=== PATIENT | female | born 1985 | race Caucasian/White ===

== ENCOUNTER 2022-10-13 06:55 | Inpatient (IN) ==
--- NOTE | 2022-10-06 09:35 | Anesthesiology Consultation ---
Date of Service October 06, 2022 Assessment & Plan (1) Encounter for pre-operative examination: Chart Review Chart Review: temporary data entry clerk initiated -COVID screening: Per PAT nursing assessment on 10/06/22. No known COVID-19 pos itive contacts or current COVID-19 related symptoms. Travel screen negative. At surgeon discretion if preop Covid testing being done. History Surgery Operation Date: 10/13/22 08:50 Proposed Procedures p Section (Delivery of Baby Through Abdominal Incision) - Gissel Engle MD, FACOG Height/Weight Height: 5 ft 6 in Weight: 80.286 kg Allergies Allergy/AdvReac Type Severity Reaction Status Date / Time No Known Allergies Allergy Verified 10/06/22 08:04 Medications Home Medications Medication Instructions Recorded Confirmed Last Taken prenat.vits,noemi,[id number] 1 tab PO DAILY 04/24/22 10/06/22 Unknown Past Medical History Medical History Anxiety no longer on meds > controlled Asthma hx of > no res inh, was sports related Past Family History Family History Grandfather (Maternal) Congestive heart failure Grandmother (Maternal) Alzheimer disease Grandfather (Paternal) Diabetes Other Coronary heart disease Past Surgical History Surgical History S/P wisdom tooth extraction Social History Smoking Status: Former smoker Smoking cigarettes per day: no longer cigarettes, but vapes on occasion> advised npo status Do You Dip or Chew Tobacco: No Hx Alcohol Use: No Hx Substance Use: No substance use type: does not use
--- NOTE | 2022-10-12 11:21 | History & Physical Report ---
Date of Service October 12, 2022 Assessment & Plan (1) 39 weeks gestation of : (2) Breech presentation: (3) Skin tag of labia: Plan On day of admission will plan c/s. Declines ecv. Has skin tag of vulva she would also like to excise. C/s reviewed, risks, benefits and complications. Consent reviewed and signed. Denies other concerns. Aware of preop instructions. History of Present Illness Chief Complaint: planned c/s Primary Care Provider: MARK PCP 37yo at 39wks ega on day of her admission for planned c/s due to breech presentation. Today baby is still breech. Pt declines attempt at ecv. She denies rom, vb. or ctx. +FM. PNC c/b 1. breech 2. skin tag of vulva, wants to have removed at time of delivery. 3. ASCUS-H, needs pp colpo at 6wks. PNL rh pos, ri, gbs neg OBH: g1 GYNH: abnl paps, needs pp followup as colpo at 6wks, due to suspected margarita 2 on colpo Allergies Allergy/AdvReac Type Severity Reaction Status Date / Time No Known Allergies Allergy Verified 10/12/22 09:10 Home Medications Medication Instructions Recorded Confirmed Type prenat.vits,noemi,[id number] 1 tab PO DAILY 04/24/22 10/12/22 History Patient History Medical History Anxiety no longer on meds > controlled Asthma hx of > no res inh, was sports related Surgical History S/P wisdom tooth extraction Family History Grandfather (Maternal) Congestive heart failure Grandmother (Maternal) Alzheimer disease Grandfather (Paternal) Diabetes Other Coronary heart disease Social History (Updated 04/24/22 @ 09:59 by Chaya Wilson) Smoking Status: Former smoker Tobacco Type: E-cigarettes / Vaping Cigarettes Per Day: no longer cigarettes, but vapes on occasion> advised npo status; Second Hand Exposure: No; Do You Dip or Chew Tobacco: No; Hx Alcohol Use: No Hx Substance Use: No Preferred Language: Malay Communication Ability: Effective Senior Benefits Specialist Required: No Beliefs That Will Affect Care: None marital status: Legally marital status details: Nils (34) [phone] Current Living Situation: Family and Significant Other Current Living Situation Comment: lives with FOB, fob's children stay every other night. current occupational status: employed current occupation: [employer] @ [employer] Feels Safe at Home: Yes Assistive Devices: Glasses Review of Systems as per Subjective / HPI Physical Exam Constitutional: WD/WN, vitals as above Respiratory: normal respiratory effort, lungs clear to auscultation Cardiovascular: Rate/Rhythm: regular rate and regular rhythm Gastrointestinal (Abdomen): soft gravid nt nst reactive Musculoskeletal: no edema Neurologic: grossly normal Psychiatric: A+Ox3, euthymic affect Coding Level of Care Code None Diagnoses 39 weeks gestation of Z3A.39 Breech presentation O32.1XX0 Skin tag of labia N90.89
[~2022-10-13 06:55] MED LIST: CITRIC ACID/SODIUM CITRATE 15 ML UDC PO SCH; LACTATED RINGER'S 1,000 ML IV SCH; ceFAZolin 2,000 MG in SYRINGE 0 ML IV SCH
--- NOTE | 2022-10-13 07:32 | History & Physical Bridge Note ---
Date of Service October 13, 2022 History & Physical Bridge Note I have examined the patient, reviewed the History & Physical and in the interval since the performance of the History & Physical I have noted the following changes of clinical significance: no changes noted
[2022-10-13] MEDS ORDERED: ONDANSETRON INJ 2 MG/ML 2 ML VIAL ONE (08:09)
[2022-10-13] MEDS ORDERED: fentaNYL citrate PF 100 MCG/2 ML VIAL ONE (08:09)
[2022-10-13] MEDS ORDERED: OXYTOCIN 10 UNITS/ML VIAL ONE (08:09)
[2022-10-13] MEDS ORDERED: PHENYLEPHRINE 100MCG/ML 5ML SYR ONE (08:09)
[2022-10-13] MEDS ORDERED: MoRPHine SULFATE PF 1 MG/ML 10 ML AMP/VIAL ONE (08:09)
[2022-10-13 08:52] LABS: Basophils # (auto) 0.03 K/uL (0.00-0.20); Basophils % (auto) 0.3 %; Eosinophils # (auto) 0.07 K/uL (0.00-0.50); Eosinophils % (auto) 0.6 %; Hematocrit (blood only) 35.2 % (37.0-47.0); Hemoglobin 12.3 g/dl (12.0-16.0); Immature Granulocytes # (auto) 0.06 K/uL (0.01-0.20); Immature Granulocytes % (auto) 0.5 %; Lymphocytes # (auto) 1.99 K/uL (1.20-3.40); Lymphocytes % (auto) 18.1 %; Mean Corpuscular Hemoglobin 31.4 pg (25.0-34.0); Mean Corpuscular Hgb Conc 34.9 g/dL (32.0-36.0); Mean Corpuscular Volume 89.8 fL (80.0-100.0); Mean Platelet Volume 10.2 fL (9.4-12.4); Monocytes # (auto) 0.99 K/uL (0.11-0.59); Neutrophils # (auto) 7.86 K/uL (1.40-6.50); Neutrophils % (auto) 71.5 %; Platelet Count 225 K/uL (130-400); RDW Coefficient of Variation 12.7 % (11.5-14.5); RDW Standard Deviation 41.3 fL (36.4-46.3); Red Blood Count 3.92 M/uL (4.20-5.40)
[2022-10-13] MEDS ORDERED: SILVER NITR/POTASSIUM NITRATE APPLICATOR ONE (10:00)
[2022-10-13] MEDS ORDERED: NALOXONE HCL 0.08 MG in SYRINGE 1.8 ML IV PRN (10:07)
[2022-10-13] MEDS ORDERED: MoRPHine SULFATE PF 1 MG/ML 10 ML AMP/VIAL INT SPINAL ONE (10:07)
[2022-10-13] MEDS ORDERED: HYDROmorphone INJ 0.5 MG/0.5 ML SYR IV PRN (10:07)
[2022-10-13] MEDS ORDERED: LACTATED RINGER'S 500 ML IV PRN (10:07)
[2022-10-13] MEDS ORDERED: ePHEDrine sulfate 50 MG/ML AMP IV PRN (10:07)
[2022-10-13] MEDS ORDERED: NALBUPHINE HCL INJ 10 MG/ML AMP IV PRN (10:07)
[2022-10-13] MEDS ORDERED: NALOXONE HCL 0.4 MG/1 ML VIAL/CARP IV PRN (10:07)
[2022-10-13] MEDS ORDERED: NALOXONE HCL 1 MG in SODIUM CHLORIDE 0.9% 1000ML 1,000 ML IV PRN (10:07)
[2022-10-13] MEDS ORDERED: diphenhydrAMINE 50 MG/ML VIAL IV PRN (10:07)
[2022-10-13] MEDS ORDERED: ONDANSETRON INJ 2 MG/ML 2 ML VIAL IV PRN ×2 (10:07→12:15)
[2022-10-13] MEDS ORDERED: PROMETHAZINE HCL 6.25 MG in SODIUM CHLORIDE 0.9% 50 ML IV PRN (10:07)
[2022-10-13] MEDS ORDERED: SODIUM CHLORIDE 0.9% 1000ML 1,000 ML IV SCH (10:15)
[2022-10-13] MEDS ORDERED: NO NARCOTICS OR SEDATIVES SCH (10:15)
[2022-10-13] MEDS ORDERED: DC INTRASPINAL MORPHINE SCH (10:15)
[2022-10-13] MEDS ORDERED: MIDAZOLAM HCL 1 MG/ML 2ML VIAL ONE (10:19)
--- NOTE | 2022-10-13 10:45 | Operative Report ---
PG Post Operative Report Pre & Post Diagnosis Operation Date: 10/13/22 08:50 Pre-Op Diagnosis: 1. Term 2. Breech presentation 3. Removal of skin tag Post-Op Diagnosis: Same I identified the patient and participated in the time-out.: Yes Procedure Operation Date: 10/13/22 08:50 Actual Procedures p Primary Low Transverse Section (Delivery of Baby Through Abdominal Incision), Removal of Skin Tag of right vulva with the of a live male child at 1008. - Gissel Engle MD, FACOG Surgeon Gissel Engle MD, FACOG Guard Rail Installer [place] Estimated Blood Loss 450 Findings Consistent with Post-Op Diagnosis (viable male , apgars pending. normal uterus, tubes and ovaries bilaterally. .8x.4cm right vulvar skin tag. ) Fluids 1000 Specimens cord blood skin tag of vulva Drains galvin Anesthesia Type Spinal Complications none Disposition Accompanied Patient To Recovery: No Disposition: L&D Indications 37yo at 39wks ega with breech presentation for planned c/s. Declines ECV. Description of Procedure The patient was taken to the operating room and identified. After adequate anesthesia was obtained, she was placed in the supine position with a leftward tilt on the operating table and prepped and draped in the usual sterile fashion. A galvin catheter had already been placed. The knife was used to create a Pfannensteil skin incision that was carried down to the underlying layer of fascia. The fascia was nicked in the midline and this opening was extended laterally using Gould scissors. Skip clamps were placed on the superior and inferior aspect of the fascial incision tenting it upward and the underlying rectus muscles were dissected off the overlying fascia both sharply and bluntly using Gould scissors. The rectus muscles were bluntly in the midline. The peritoneal cavity was bluntly entered into. This opening was stretched. The bladder blade was placed. The vesicouterine peritoneum was elevated and opened up into and the bladder flap was created digitally and bladder blade was replaced. The knife was used to create a hysterotomy and this opening was stretched. The operators hand was placed through the hysterotomy and the buttocks was elevated and with fundal pressure the buttocks was delivered to level of scapulae and the arms were swept across the anterior midline. The head was flexed and delivered. The cord was clamped and cut and the infant's mouth and nares were bulb suction. The infant was handed off to the awaiting pediatricians. Cord blood was obtained. The placenta was manually expressed. The uterus was exteriorized and cleared of all clots and debris. Dilute IV Pitocin was begun. The uterine tone was improving. The hysterotomy was closed in a running interlocking fashion using 0 Vicryl followed by a second imbricating layer of 0 Vicryl. The hysterotomy was not hemostatic at an area near the right corner and therefore an additional figure of eight suture of 2-0 vicryl was placed for excellent hemostasis. The pelvis was irrigated. The uterus was returned to the abdomen. The gutters were cleared of all clots and debris. The hysterotomy was reinspected and noted to be hemostatic. The fascia was then closed in running fashion using 0 Vicryl. The subcutaneous fat was copiously irrigated and reapproximated using 2-0 chromic. The skin was closed in a subcuticular fashion using 4-0 monocryl. Attention was then turned to patient vulva, skin tag cleansed with betadine x 2, elevated and transected at stalk. Sent to pathology. Base cauterized with silver nitrate for excellent hemostasis. At this point the procedure was terminated. The patient was transferred to the recovery room in stable condition. All sponge, lap and needle counts are correct x2. I attest to the content of the Intraoperative Record and any orders documented therein. Any exceptions are noted below. OB Procedure Charges 98986 CHARGE HAND Minor Procedure Codes Exc malig vulvar lesion 35826 Removal of Skin Lesion 0.3-1.0 cm
--- NOTE | 2022-10-13 10:54 | Anesthesiology Progress Note ---
Date of Service October 13, 2022 Anesthesia Post Procedure Vital Signs Vital Signs: Temp Pulse Resp BP Pulse Ox O2 Del Method 10/13/22 07:13 36.8 C 18 Room Air 10/13/22 10:51 72 99 10/13/22 10:46 72 119/61 100 10/13/22 07:01 81 111/73 Transfer of Care Handoff Completed per policy Notes Mental Status: alert / awake / arousable and participated in evaluation Patient Amnestic to Procedure: No Nausea / Vomiting: adequately controlled Pain: adequately controlled Airway Patency, RR, SpO2: stable & adequate BP & HR: stable & adequate Hydration State: stable & adequate Neuraxial Anesthesia: was administered and sensory block is resolving Anesthetic Complications: no major complications apparent and Pt Satisfied with anesthetic care
[2022-10-13] MEDS ORDERED: SILVER NITR/POTASSIUM NITRATE APPLICATOR EXT ONE (11:10)
[2022-10-13] MEDS ORDERED: DIPHTHERIA/TETANUS/PERTUSSIS Vaccine (Tdap, Age 7+yrs) 0.5mL SYR/VL IM ONE (12:15)
[2022-10-13] MEDS ORDERED: HYDROCORTISONE ACETATE 25 MG SUPP PR PRN (12:15)
[2022-10-13] MEDS ORDERED: MAGNESIUM HYDROXIDE SUSP 30 ML UDC PO PRN (12:15)
[2022-10-13] MEDS ORDERED: SENNA 8.6 MG TAB PO PRN (12:15)
[2022-10-13] MEDS ORDERED: BENZOCAINE 20% SPRY 85 APPLN/85 GM CAN EXT PRN (12:15)
[2022-10-13] MEDS: KETOROLAC 30 MG/ML VIAL IV PRN (12:26)
[2022-10-13] MEDS: OXYTOCIN 20 UNITS in LACTATED RINGER'S 1,000 ML IV SCH ×2 (13:21→22:13)
[2022-10-13] MEDS: SIMETHICONE 80 MG CHEW PO SCH ×3 (17:12→20:33)
[2022-10-13] MEDS: DOCUSATE SODIUM 100 MG CAP PO SCH (20:33)
[2022-10-13] MEDS: LACTATED RINGER'S 1,000 ML IV SCH (20:34)
[2022-10-14] MEDS: KETOROLAC 30 MG/ML VIAL IV PRN (04:03)
[2022-10-14] MEDS ORDERED: diphenhydrAMINE Capsule 25 MG CAP PO PRN (04:08)
[2022-10-14] MEDS ORDERED: PROMETHAZINE HCL 25 MG in SODIUM CHLORIDE 0.9% 50 ML IV PRN (04:08)
[2022-10-14] MEDS ORDERED: KETOROLAC 30 MG/ML VIAL IV PRN (04:08)
[2022-10-14] MEDS ORDERED: diphenhydrAMINE 50 MG/ML VIAL IV PRN (04:08)
[2022-10-14] MEDS ORDERED: MEPERIDINE HCL 50 MG/ML CARP IV PRN (04:08)
[2022-10-14] MEDS: LACTATED RINGER'S 1,000 ML IV SCH ×2 (04:35→19:49)
--- NOTE | 2022-10-14 06:49 | Obstetrical Progress Note ---
Date of Service October 14, 2022 Assessment & Plan (1) S/P : Plan: encourage ambulation pain control Admission and Anticipated Discharge Date Admission Date: October 13, 2022 Supervising Physician Co-Signing Physician Notes Resident Physician Supervision Note: I was present with Dr. Nayak during the history and exam. I discussed the case with the resident and agree with the findings and plan as documented in the note. Any exceptions or clarifications are listed here: [None] Documented By: Shantanu Calero MD, FACOG Subjective 37 yo post day 1 s/p Ambulation: ambulating normally Voiding: no voiding problems Passing Gas:: Yes Diet Tolerance:: regular diet Lochia:: Small Feeding Type:: breast feeding Current Pain Level: minimal Resting comfortably this AM. Denies COOK, CP, SOB, N/V/D, LE swelling Review of Systems Review of Systems: reviewed, per hpi Physical Exam Physical Exam: General: patient resting comfortably, NAD, non-toxic in appearance, AA&O x 4, answers questions appropriately. Skin: warm, dry, intact HEENT: NC/AT, anicteric sclera, conjunctiva without injection, moist mucus membranes. Heart: +S1/S2, regular, no m/r/g Lungs: equal air entry bilaterally, no rales/rhonchi/wheezes Abd: +BS, soft, NT/ND, uterine fundus firm at umbilicus, caesarean incision C/D/I Ext: warm, no clubbing/cyanosis or edema, Rusty's neg Neuro: nonfocal, patient AA&O x 4, speech intact, no facial droop, moving all extremities on command. Results & Data Vital Signs (Past 12 Hours) Vital Signs Temp Pulse Resp BP Pulse Ox O2 Del Method 10/14/22 03:00 16 96 10/14/22 02:00 16 96 10/14/22 04:00 37.2 C 67 16 95/57 L 95 Room Air 10/14/22 01:00 18 97 10/14/22 00:00 16 97 10/13/22 23:20 16 95 10/13/22 23:20 36.9 C 73 16 95/54 L 95 Room Air 10/13/22 22:00 18 99 10/13/22 20:30 18 100 10/13/22 20:30 36.9 C 76 18 114/64 100 Room Air Resident Activity Tracking Resident Involvement: Resident Care Provided Care Provided: Adult Hospital Medicine
[2022-10-14] MEDS ORDERED: NON-FORMULARY MEDICATION (Prenat.Vits,Cal,Min-Iron-Folic tablet) PO SCH (09:00)
[2022-10-14] MEDS: DOCUSATE SODIUM 100 MG CAP PO SCH ×2 (09:24→21:44)
[2022-10-14] MEDS: FERROUS SULFATE 325 MG TAB PO SCH (09:24)
[2022-10-14] MEDS: SIMETHICONE 80 MG CHEW PO SCH ×4 (09:24→21:44)
[2022-10-14] MEDS: PRENATAL VITAMIN 1 TAB PO SCH (09:24)
[2022-10-14] MEDS: IBUPROFEN 600 MG TAB PO PRN ×4 (09:25→22:13)
[2022-10-14] MEDS: oxyCODONE/ACETAMINOPHEN 5mg/325mg TAB PO PRN ×4 (09:25→22:13)
[2022-10-14 09:26] LABS: Basophils # (auto) 0.04 K/uL (0.00-0.20); Basophils % (auto) 0.3 %; Eosinophils # (auto) 0.03 K/uL (0.00-0.50); Eosinophils % (auto) 0.2 %; Hematocrit (blood only) 35.6 % (37.0-47.0); Hemoglobin 12.3 g/dl (12.0-16.0); Immature Granulocytes # (auto) 0.07 K/uL (0.01-0.20); Immature Granulocytes % (auto) 0.5 %; Lymphocytes # (auto) 1.83 K/uL (1.20-3.40); Lymphocytes % (auto) 11.9 %; Mean Corpuscular Hemoglobin 31.6 pg (25.0-34.0); Mean Corpuscular Hgb Conc 34.6 g/dL (32.0-36.0); Mean Corpuscular Volume 91.5 fL (80.0-100.0); Mean Platelet Volume 9.6 fL (9.4-12.4); Monocytes # (auto) 0.93 K/uL (0.11-0.59); Monocytes % (auto) 6.1 %; Neutrophils # (auto) 12.43 K/uL (1.40-6.50); Platelet Count 203 K/uL (130-400); RDW Coefficient of Variation 12.6 % (11.5-14.5); RDW Standard Deviation 41.3 fL (36.4-46.3); Red Blood Count 3.89 M/uL (4.20-5.40); White Blood Count 15.33 K/ul (4.8-10.8)
[2022-10-14] MEDS ORDERED: MEASLES, MUMPS & RUBELLA VIRUS VIAL ONE (17:23)
[2022-10-14] MEDS ORDERED: bisacodyL 5 MG TABEC PO SCH (20:00)
[2022-10-15] MEDS: IBUPROFEN 600 MG TAB PO PRN ×5 (03:35→23:53)
[2022-10-15] MEDS: oxyCODONE/ACETAMINOPHEN 5mg/325mg TAB PO PRN ×5 (03:36→23:55)
[2022-10-15 06:46] LABS: Hematocrit (blood only) 30.1 % (37.0-47.0); Hemoglobin 10.3 g/dl (12.0-16.0)
--- NOTE | 2022-10-15 08:05 | Obstetrical Progress Note ---
Date of Service October 15, 2022 Assessment & Plan (1) examination following delivery: Plan stable, routine care. breast, rhpos, ri. pain control adequate with available pain meds. hgb noted. Day #:: 2 Subjective Ambulation: ambulating normally Voiding: no voiding problems Passing Gas:: Yes Diet Tolerance:: regular diet Lochia:: Small Feeding Type:: breast feeding some incisional pain on and off and pain meds help. Constitutional: + as per Subjective / HPI Physical Exam Constitutional WD/WN, vitals as above Respiratory normal respiratory effort, lungs clear to auscultation Cardiovascular Rate/Rhythm: regular rate and regular rhythm Gastrointestinal (Abdomen) Inspection/Auscultation: abdomen normal to inspection and + abdominal surgical incision (c/d/i with bruising) Percussion/Palpation: abdomen soft fundus firm 1-2 cm below umbilicus Musculoskeletal nt calves no edema Neurologic grossly normal Psychiatric A+Ox3, euthymic affect Results & Data Vital Signs (Past 12 Hours) Vital Signs Temp Pulse Resp BP Pulse Ox O2 Del Method 10/14/22 23:40 97.9 F 78 16 101/58 L 97 Room Air 10/14/22 20:45 97.5 F L 62 18 102/60 95 Room Air
[2022-10-15] MEDS: DOCUSATE SODIUM 100 MG CAP PO SCH ×2 (08:48→20:11)
[2022-10-15] MEDS: FERROUS SULFATE 325 MG TAB PO SCH (08:48)
[2022-10-15] MEDS: PRENATAL VITAMIN 1 TAB PO SCH (08:49)
[2022-10-15] MEDS: SIMETHICONE 80 MG CHEW PO SCH ×4 (08:49→20:11)
[2022-10-15] MEDS ORDERED: bisacodyL 10 MG SUPP PR PRN (10:30)
[2022-10-16] MEDS: IBUPROFEN 600 MG TAB PO PRN ×2 (03:52→08:18)
[2022-10-16] MEDS: oxyCODONE/ACETAMINOPHEN 5mg/325mg TAB PO PRN ×2 (03:52→08:19)
--- NOTE | 2022-10-16 06:30 | Obstetrical Progress Note ---
Date of Service October 16, 2022 Assessment & Plan (1) S/P : Plan: encourage ambulation pain control plan for DC today Admission and Anticipated Discharge Date Admission Date: October 13, 2022 Supervising Physician Co-Signing Physician Notes Resident Physician Supervision Note: I was present with Dr. Nayak during the history and exam. I discussed the case with the resident and agree with the findings and plan as documented in the note. Any exceptions or clarifications are listed here: stable, doing well, eating, voiding, ambulating, breast feeding, pain control adequate. af vss abd soft ff 2 down nt, incision c/d/i with bruising. ext nt calves. pod #3 s/p LTCS, dc home today, instructions reviewed. f/u 6 wk pp check. checked on papdmp. Documented By: Gissel Engle MD, FACOG Subjective 37 yo post day 3 s/p Ambulation: ambulating normally Voiding: no voiding problems Passing Gas:: Yes Diet Tolerance:: regular diet Lochia:: Small Feeding Type:: breast feeding Current Pain Level: minimal Resting comfortably this AM. Denies COOK, CP, SOB, N/V/D, LE swelling Review of Systems Review of Systems: reviewed, per hpi Physical Exam Physical Exam: General: patient resting comfortably, NAD, non-toxic in appearance, AA&O x 4, answers questions appropriately. Skin: warm, dry, intact HEENT: NC/AT, anicteric sclera, conjunctiva without injection, moist mucus membranes. Heart: +S1/S2, regular, no m/r/g Lungs: equal air entry bilaterally, no rales/rhonchi/wheezes Abd: +BS, soft, NT/ND, uterine fundus firm at umbilicus, caesarean incision C/D/I Ext: warm, no clubbing/cyanosis or edema, Rusty's neg Neuro: nonfocal, patient AA&O x 4, speech intact, no facial droop, moving all extremities on command. Results & Data Vital Signs (Past 12 Hours) Vital Signs Temp Pulse Resp BP Pulse Ox O2 Del Method 10/15/22 23:35 37 C 82 16 115/68 98 Room Air 10/15/22 20:15 36.9 C 89 16 108/63 97 Room Air Resident Activity Tracking Resident Involvement: Resident Care Provided Care Provided: Adult [facility] Medicine
[2022-10-16] MEDS: PRENATAL VITAMIN 1 TAB PO SCH (08:18)
[2022-10-16] MEDS: FERROUS SULFATE 325 MG TAB PO SCH (08:18)
[2022-10-16] MEDS: DOCUSATE SODIUM 100 MG CAP PO SCH (08:18)
[2022-10-16] MEDS: SIMETHICONE 80 MG CHEW PO SCH (08:20)
--- NOTE | 2022-10-17 15:06 | Discharge Summary ---
Date of Service Date of admission: 10/13/22 Date of discharge: October 16, 2022 Admission HPI Per Admitting Provider 37yo at 39wks ega on day of her admission for planned c/s due to breech presentation. Today baby is still breech. Pt declines attempt at ecv. She denies rom, vb. or ctx. +FM. PNC c/b 1. breech 2. skin tag of vulva, wants to have removed at time of delivery. 3. ASCUS-H, needs pp colpo at 6wks. PNL rh pos, ri, gbs neg OBH: g1 GYNH: abnl paps, needs pp followup as colpo at 6wks, due to suspected magrarita 2 on colpo Discharge Data Consultations 10/13/22 08:23 Consult Anesthesiology Stat Procedures Performed Operation Date: 10/13/22 08:50 Actual Procedures p Primary Low Transverse Section (Delivery of Baby Through Abdominal Incision), Removal of Skin Tag with the of a live male child at 1008. - Gissel Engle MD, [facility] [place] Hospital Course (1) examination following delivery: The patient underwent the above stated procedure without incident and her postoperative course and recovery was uncomplicated. On her postoperative day #3 she was tolerating a regular diet, voiding spontaneously, ambulating without problem and was using oral meds for adequate pain control. Her postoperative h emoglobin was 10.3. She was given written and verbal discharge instructions and told to followup in office at 6wks. She was given appropriate pain medicine prescriptions. Coding Level of Care Code None Diagnoses examination following delivery Z39.2
== END 2022-10-16 11:55 | disposition home or self-care (01) | DRG 788 ==
LOC: ASU 06:55 → 4S1 06:57 → 4E2 13:15
DX: Z87.891 Personal history of nicotine dependence; N90.89 Other specified noninflammatory disorders of vulva and perineum; O32.1XX0 Maternal care for breech presentation, not applicable or unspecified; Z37.0 Single live birth; R87.89 Other abnormal findings in specimens from female genital organs; Z79.899 Other long term (current) drug therapy; O26.893 Other specified pregnancy related conditions, third trimester; Z3A.39 39 weeks gestation of pregnancy